=== PATIENT | female | born 1980 | race Caucasian/White ===

== ENCOUNTER → 2022-01-20 | Outpatient (CLI) | payer OTHER ==
[~2022-01-20] MED LIST: PRENATAL 19 TA1 EAC1 PO; SYNTHROID125 MCG PO
== END ==
LOC: KOH-I 14:58
DX: M79.674 Pain in right toe(s) (principal); S92.514A Nondisplaced fracture of proximal phalanx of right lesser toe(s), initial encounter for closed fracture
CPT/HCPCS: 73610; 73630